=== PATIENT | male | born 1960 | race Caucasian/White ===

== ENCOUNTER → 2023-01-27 | Outpatient (REF) | payer OTHER ==
[2023-01-27 18:01] LABS: CHOLESTEROL LEVEL 152 MG/DL (<200); CHOLESTEROL RISK RATIO 2.33 (<5); HDL CHOLESTEROL 65.1 MG/DL (>40); LDL CHOLESTEROL 56.3 MG/DL (<100); NON-HDL-C 86.9 MG/DL; THYROID STIMULATING HORMONE 1.496 uIU/ML (0.55-4.78); TRIGLYCERIDES LEVEL 153 MG/DL (<150)
[2023-01-27 18:04] LABS: HEMOGLOBIN A1c 5.6 % (4.0-6.0)
[2023-01-29 07:09] LABS: HEPATITIS A IgG TOTAL Negative (Negative)
== END ==
LOC: M LAB REF 16:10
PROVIDERS: ATTEND Pediatrics
DX: E66.01 Morbid (severe) obesity due to excess calories (principal); Z68.41 Body mass index [BMI] 40.0-44.9, adult; Z11.9 Encounter for screening for infectious and parasitic diseases, unspecified; Z12.5 Encounter for screening for malignant neoplasm of prostate
CPT/HCPCS: 80061; 83036; 84443; 86317; 86708; 87340; G0103

== ENCOUNTER 2023-02-23 16:45 | Inpatient (IN) | payer OTHER, MEDICAID ==
[~2023-02-23] VITALS: Ht 177.8 cm; Wt 129.8 kg
[2023-02-23 17:38] LABS: HEMATOCRIT 45.6 % (42.0-52.0); HEMOGLOBIN 15.7 g/dl (13.5-17.5); MEAN CORPUSCULAR HEMOGLOBIN 31.8 pg (27.0-33.0); MEAN CORPUSCULAR HGB CONC 34.4 g/dl (32.0-36.5); MEAN CORPUSCULAR VOLUME 92.3 fl (80.0-96.0); PLATELET COUNT, AUTOMATED 199 10^3/uL (150-450); RED BLOOD COUNT 4.94 10^6/uL (4.30-6.10); WHITE BLOOD COUNT 7.8 10^3/uL (4.0-10.0)
[2023-02-23 17:52] LABS: BENZODIAZEPINES URINE NEGATIVE (NEGATIVE); PHENCYCLIDINE URINE NEGATIVE (NEGATIVE)
[2023-02-23 17:53] LABS: AMPHETAMINES LEVEL URINE NEGATIVE (NEGATIVE); BARBITURATES URINE NEGATIVE (NEGATIVE); CANNABINOIDS URINE NEGATIVE (NEGATIVE); COCAINE METABOLITE URINE NEGATIVE (NEGATIVE); METHADONE URINE NEGATIVE (NEGATIVE); OPIATES URINE NEGATIVE (NEGATIVE)
[2023-02-23 17:54] LABS: ETHYL ALCOHOL (ETHANOL) < 0.003 % (0.000-0.010)
[2023-02-23 17:55] LABS: ACETAMINOPHEN LEVEL < 2.0 UG/ML (10.0-20.0); ALKALINE PHOSPHATASE 74 U/L (46-116); ALT/SGPT 29 U/L (7.0-40); AST/SGOT 19 U/L (<34); BILIRUBIN,DIRECT 0.3 MG/DL (<0.4); BILIRUBIN,TOTAL 0.8 MG/DL (0.3-1.2); BLOOD UREA NITROGEN 27 MG/DL (9-23); CALCIUM LEVEL 9.1 MG/DL (8.3-10.6); CARBON DIOXIDE LEVEL 25 MMOL/L (20-31); CHLORIDE LEVEL 110 MMOL/L (98-107); CREATININE FOR GFR 0.85 MG/DL (0.70-1.30); GLOMERULAR FILTRATION RATE > 60.0 (>49); GLUCOSE, FASTING 112 MG/DL (74-106); SALICYLATE LEVEL < 3.0 MG/DL (<30); SODIUM LEVEL 144 MMOL/L (136-145)
[2023-02-24] MEDS ORDERED: AMLO1TAB25 PO (00:49)
[2023-02-24] MEDS ORDERED: ATOR40TA75 PO (00:49)
[2023-02-24] MEDS ORDERED: DOXA1TAB41 PO (00:49)
[2023-02-24] MEDS ORDERED: PANT20TA6 PO (00:49)
[2023-02-24] MEDS ORDERED: ARIP1TAB10 PO (00:49)
[2023-02-24] MEDS ORDERED: HOME MED LIST COMPLETE! XX SCH (00:50)
[2023-02-24] MEDS: PANTOPRAZOLE 20 MG TAB PO SCH (09:00)
[2023-02-24] MEDS: ATORVASTATIN 20 MG TAB PO SCH (09:00)
[2023-02-24] MEDS ORDERED: ACETAMINOPHEN TAB 650MG DOSE (2X325MG) PO PRN (13:15)
[2023-02-24] MEDS ORDERED: diphenhydrAMINE 25MG CAP PO PRN (13:15)
[2023-02-24] MEDS ORDERED: traZODone 50 MG TAB PO PRN (13:15)
[2023-02-24] MEDS ORDERED: MOM 30ML SUSPENSION UDC PO PRN (13:15)
[2023-02-24] MEDS ORDERED: MAALOX 30 ML SUSP *UDC PO PRN (13:15)
[2023-02-24] MEDS ORDERED: IBUPROFEN 400MG TAB PO PRN (13:15)
[2023-02-24 17:01] VITALS: BP 128/74; TEMP 97.4; O2SAT 96
[2023-02-24] MEDS: ARIPiprazole 15 MG TAB (AbiLIFY) PO SCH (21:20)
[2023-02-24] MEDS: DOXAZOSIN MESYLATE 4 MG TAB PO SCH (21:37)
[2023-02-25 06:55] VITALS: BP 126/75; TEMP 98.2; O2SAT 95
[2023-02-25] MEDS: ATORVASTATIN 20 MG TAB PO SCH (08:43)
[2023-02-25] MEDS: PANTOPRAZOLE 20 MG TAB PO SCH (10:17)
[2023-02-25 16:05] VITALS: BP 136/62; TEMP 98; O2SAT 99
[2023-02-25] MEDS: ARIPiprazole 15 MG TAB (AbiLIFY) PO SCH (21:06)
[2023-02-25] MEDS: DOXAZOSIN MESYLATE 4 MG TAB PO SCH (21:13)
[2023-02-26 06:41] VITALS: BP 134/84; TEMP 98.1; O2SAT 95
[2023-02-26] MEDS: buPROPion **XL** TABLET 150MG (WELLBUTRIN XL) PO SCH (08:32)
[2023-02-26] MEDS: PANTOPRAZOLE 20 MG TAB PO SCH (08:33)
[2023-02-26] MEDS: ATORVASTATIN 20 MG TAB PO SCH (08:33)
[2023-02-26 09:07] LABS: CHOLESTEROL RISK RATIO 2.42 (<5); HDL CHOLESTEROL 48.2 MG/DL (>40); LDL CHOLESTEROL 47.8 MG/DL (<100); NON-HDL-C 68.8 MG/DL
[2023-02-26 16:21] VITALS: BP 128/72; TEMP 98; O2SAT 96
[2023-02-26] MEDS: ARIPiprazole 15 MG TAB (AbiLIFY) PO SCH (21:24)
[2023-02-26] MEDS: DOXAZOSIN MESYLATE 4 MG TAB PO SCH (21:25)
[2023-02-27 06:12] VITALS: BP 142/82; TEMP 98.6; O2SAT 99
[2023-02-27] MEDS: PANTOPRAZOLE 20 MG TAB PO SCH (08:58)
[2023-02-27] MEDS: buPROPion **XL** TABLET 150MG (WELLBUTRIN XL) PO SCH (08:59)
[2023-02-27] MEDS: ATORVASTATIN 20 MG TAB PO SCH (08:59)
[2023-02-27 18:02] VITALS: BP 138/80; TEMP 98.3
[2023-02-27] MEDS: ARIPiprazole 15 MG TAB (AbiLIFY) PO SCH (20:18)
[2023-02-27] MEDS: DOXAZOSIN MESYLATE 4 MG TAB PO SCH (21:19)
[2023-02-28 06:07] VITALS: BP 130/85; TEMP 98.3; O2SAT 95
[2023-02-28 08:56] VITALS: BP 145/89
[2023-02-28] MEDS: ATORVASTATIN 20 MG TAB PO SCH (08:57)
[2023-02-28] MEDS: buPROPion **XL** TABLET 150MG (WELLBUTRIN XL) PO SCH (08:57)
[2023-02-28] MEDS: PANTOPRAZOLE 20 MG TAB PO SCH (09:51)
[2023-02-28 17:58] VITALS: BP 136/71; TEMP 98.2; O2SAT 98
[2023-02-28] MEDS: DOXAZOSIN MESYLATE 4 MG TAB PO SCH (21:16)
[2023-02-28] MEDS: ARIPiprazole 15 MG TAB (AbiLIFY) PO SCH (21:16)
[2023-03-01 06:59] VITALS: BP 130/81; TEMP 98.7; O2SAT 96
[2023-03-01] MEDS: ATORVASTATIN 20 MG TAB PO SCH (09:01)
[2023-03-01] MEDS: buPROPion **XL** TABLET 150MG (WELLBUTRIN XL) PO SCH (09:01)
[2023-03-01] MEDS: PANTOPRAZOLE 20 MG TAB PO SCH (11:29)
[2023-03-01 16:10] VITALS: BP 131/67; TEMP 98.6; O2SAT 96
[2023-03-01] MEDS: ARIPiprazole 15 MG TAB (AbiLIFY) PO SCH (20:15)
[2023-03-01] MEDS: DOXAZOSIN MESYLATE 4 MG TAB PO SCH (20:15)
[2023-03-02 06:16] VITALS: BP 143/78; TEMP 99.3; O2SAT 96
[2023-03-02] MEDS: buPROPion **XL** TABLET 150MG (WELLBUTRIN XL) PO SCH (08:19)
[2023-03-02] MEDS: ATORVASTATIN 20 MG TAB PO SCH (08:20)
[2023-03-02] MEDS: PANTOPRAZOLE 20 MG TAB PO SCH (08:21)
[2023-03-02 18:19] VITALS: BP 143/81; TEMP 98; O2SAT 93
[2023-03-02] MEDS: ARIPiprazole 15 MG TAB (AbiLIFY) PO SCH (20:31)
[2023-03-02] MEDS: DOXAZOSIN MESYLATE 4 MG TAB PO SCH (20:35)
[2023-03-03 06:54] VITALS: BP 135/78; TEMP 99; O2SAT 97
[2023-03-03 08:51] VITALS: BP 131/79
[2023-03-03] MEDS: buPROPion **XL** TABLET 150MG (WELLBUTRIN XL) PO SCH (08:52)
[2023-03-03] MEDS: ATORVASTATIN 20 MG TAB PO SCH (08:53)
[2023-03-03] MEDS: PANTOPRAZOLE 20 MG TAB PO SCH (09:48)
[2023-03-03] MEDS: busPIRone 10 MG TAB PO SCH ×2 (11:18→20:54)
[2023-03-03] MEDS: ANUSOL HC CREAM 30GM TOP PRN (11:19)
[2023-03-03 18:34] VITALS: BP 127/71; TEMP 98.1
[2023-03-03] MEDS: ARIPiprazole 15 MG TAB (AbiLIFY) PO SCH (20:55)
[2023-03-03] MEDS: DOXAZOSIN MESYLATE 4 MG TAB PO SCH (20:55)
[2023-03-04 06:31] VITALS: BP 126/77; TEMP 97.6; O2SAT 96
[2023-03-04 08:24] VITALS: BP 120/72; O2SAT 98
[2023-03-04] MEDS: busPIRone 10 MG TAB PO SCH ×2 (08:25→20:27)
[2023-03-04] MEDS: PANTOPRAZOLE 20 MG TAB PO SCH (08:25)
[2023-03-04] MEDS: ATORVASTATIN 20 MG TAB PO SCH (08:25)
[2023-03-04] MEDS: buPROPion **XL** TABLET 150MG (WELLBUTRIN XL) PO SCH (08:29)
[2023-03-04] MEDS: ANUSOL HC CREAM 30GM TOP PRN (08:30)
[2023-03-04 18:08] VITALS: BP 114/57; TEMP 98.5
[2023-03-04] MEDS: ARIPiprazole 15 MG TAB (AbiLIFY) PO SCH (20:27)
[2023-03-04] MEDS: DOXAZOSIN MESYLATE 4 MG TAB PO SCH (20:29)
[2023-03-05 05:49] VITALS: BP 131/76; TEMP 97.8; O2SAT 92
[2023-03-05 08:38] VITALS: BP 136/68
[2023-03-05] MEDS: ATORVASTATIN 20 MG TAB PO SCH (08:39)
[2023-03-05] MEDS: busPIRone 10 MG TAB PO SCH ×2 (08:39→20:42)
[2023-03-05] MEDS: buPROPion **XL** TABLET 150MG (WELLBUTRIN XL) PO SCH (08:39)
[2023-03-05] MEDS: PANTOPRAZOLE 20 MG TAB PO SCH (08:39)
[2023-03-05] MEDS: ANUSOL HC CREAM 30GM TOP PRN (08:40)
[2023-03-05 18:27] VITALS: BP 116/56; TEMP 99; O2SAT 97
[2023-03-05] MEDS: DOXAZOSIN MESYLATE 4 MG TAB PO SCH (20:41)
[2023-03-05] MEDS: ARIPiprazole 15 MG TAB (AbiLIFY) PO SCH (20:41)
[2023-03-06 06:32] VITALS: BP 133/63; TEMP 97.8; O2SAT 93
[2023-03-06] MEDS: buPROPion **XL** TABLET 150MG (WELLBUTRIN XL) PO SCH (08:07)
[2023-03-06] MEDS: PANTOPRAZOLE 20 MG TAB PO SCH (08:07)
[2023-03-06] MEDS: ANUSOL HC CREAM 30GM TOP PRN (08:08)
[2023-03-06] MEDS: busPIRone 10 MG TAB PO SCH ×2 (08:08→20:26)
[2023-03-06] MEDS: ATORVASTATIN 20 MG TAB PO SCH (08:08)
[2023-03-06 18:07] VITALS: BP 125/74; TEMP 97.7; O2SAT 95
[2023-03-06 20:23] VITALS: BP 127/73
[2023-03-06] MEDS: DOXAZOSIN MESYLATE 4 MG TAB PO SCH (20:25)
[2023-03-06] MEDS: ARIPiprazole 15 MG TAB (AbiLIFY) PO SCH (20:25)
[2023-03-07 06:56] VITALS: BP 124/60; TEMP 98; O2SAT 96
[2023-03-07] MEDS: ATORVASTATIN 20 MG TAB PO SCH (09:31)
[2023-03-07] MEDS: busPIRone 10 MG TAB PO SCH ×2 (09:31→21:25)
[2023-03-07] MEDS: PANTOPRAZOLE 20 MG TAB PO SCH (09:32)
[2023-03-07] MEDS: ANUSOL HC CREAM 30GM TOP PRN (09:32)
[2023-03-07] MEDS: buPROPion **XL** TABLET 150MG (WELLBUTRIN XL) PO SCH (09:32)
[2023-03-07 16:04] VITALS: BP 116/68; TEMP 98.3; O2SAT 99
[2023-03-07 18:53] VITALS: BP 116/68; TEMP 98.3; O2SAT 99
[2023-03-07] MEDS: ARIPiprazole 15 MG TAB (AbiLIFY) PO SCH (21:25)
[2023-03-07] MEDS: DOXAZOSIN MESYLATE 4 MG TAB PO SCH (21:27)
[2023-03-08 06:39] VITALS: BP 113/61; TEMP 98.5; O2SAT 99
[2023-03-08] MEDS: ATORVASTATIN 20 MG TAB PO SCH (08:00)
[2023-03-08] MEDS: buPROPion **XL** TABLET 150MG (WELLBUTRIN XL) PO SCH (08:01)
[2023-03-08] MEDS: PANTOPRAZOLE 20 MG TAB PO SCH (08:01)
[2023-03-08] MEDS: busPIRone 10 MG TAB PO SCH ×2 (08:01→20:27)
[2023-03-08 09:32] VITALS: BP 133/72; TEMP 98.5; O2SAT 99
[2023-03-08 16:17] VITALS: BP 128/66; TEMP 98.2; O2SAT 95
[2023-03-08] MEDS: DOXAZOSIN MESYLATE 4 MG TAB PO SCH (20:27)
[2023-03-08] MEDS: ARIPiprazole 15 MG TAB (AbiLIFY) PO SCH (20:27)
[2023-03-09 06:47] VITALS: BP 105/57; TEMP 97.7; O2SAT 95
[2023-03-09 08:04] VITALS: BP 113/70
[2023-03-09] MEDS: PANTOPRAZOLE 20 MG TAB PO SCH (08:04)
[2023-03-09 08:05] VITALS: BP 113/70
[2023-03-09] MEDS: ATORVASTATIN 20 MG TAB PO SCH (08:05)
[2023-03-09] MEDS: buPROPion **XL** TABLET 150MG (WELLBUTRIN XL) PO SCH (08:05)
[2023-03-09] MEDS: busPIRone 10 MG TAB PO SCH (08:05)
[2023-03-09] MEDS ORDERED: WELLTAB40 PO (10:27)
[2023-03-09] MEDS ORDERED: ARIP1TAB10 PO (10:27)
[2023-03-09] MEDS ORDERED: BUSP10TA PO (10:27)
== END 2023-03-09 11:05 | disposition home or self-care (01) | DRG 885 ==
LOC: M ED 16:45 → M ED INP 02-24 13:15 → M PSY 02-24 15:40
PROVIDERS: ADMIT Student in an Organized Health Care Education/Training Program; ATTEND Student in an Organized Health Care Education/Training Program
DX: F33.1 Major depressive disorder, recurrent, moderate (principal); R45.851 Suicidal ideations; Z68.41 Body mass index [BMI] 40.0-44.9, adult; F43.10 Post-traumatic stress disorder, unspecified; F15.10 Other stimulant abuse, uncomplicated; F12.10 Cannabis abuse, uncomplicated; Z91.51 Personal history of suicidal behavior; Z79.899 Other long term (current) drug therapy; I10 Essential (primary) hypertension; E78.5 Hyperlipidemia, unspecified; E66.01 Morbid (severe) obesity due to excess calories; F60.3 Borderline personality disorder; F60.7 Dependent personality disorder; F60.89 Other specific personality disorders

== ENCOUNTER → 2023-03-29 | Outpatient (REF) | payer OTHER, MEDICAID ==
[~2023-03-29] MED LIST: AMLO1TAB25 PO; ARIP1TAB10 PO; ATOR40TA75 PO; BUSP10TA PO; DOXA1TAB41 PO; PANT20TA6 PO; WELLTAB40 PO
[2023-03-29 14:45] LABS: FOLATE 14.1 NG/ML (>5.4); VITAMIN B12 LEVEL 620 PG/ML (211-911)
== END ==
LOC: M LAB REF 12:41
PROVIDERS: ATTEND Pediatrics
DX: M79.2 Neuralgia and neuritis, unspecified (principal); R20.2 Paresthesia of skin

== ENCOUNTER 2024-10-11 14:49 | Inpatient (IN) | payer OTHER, MEDICAID ==
[~2024-10-11] VITALS: Ht 177.8 cm; Wt 166.9 kg
[~2024-10-11 14:49] MED LIST changes: +amLODIPine 5 MG TAB PO SCH
[2024-10-11 15:51] LABS: BASO % 0.2 % (0.0-1.0); HEMATOCRIT 44.2 % (42.0-52.0); HEMOGLOBIN 15.5 g/dl (13.5-17.5); LYMPH # 1.5 10^3/uL (1.5-5.0); LYMPH % 8.4 % (24.0-44.0); MEAN CORPUSCULAR HEMOGLOBIN 31.4 pg (27.0-33.0); MEAN CORPUSCULAR HGB CONC 35.1 g/dl (32.0-36.5); MEAN CORPUSCULAR VOLUME 89.7 fl (80.0-96.0); MONO # 0.9 10^3/uL (0.0-0.8); NEUTROPHILS # 14.8 10^3/uL (1.5-8.5); PLATELET COUNT, AUTOMATED 207 10^3/uL (150-450); RED BLOOD COUNT 4.93 10^6/uL (4.30-6.10); WHITE BLOOD COUNT 17.2 10^3/uL (4.0-10.0)
[2024-10-11] MEDS: ACETAMINOPHEN *IV* 1,000 MG in IV 1 EA IV ONE (16:00)
[2024-10-11 16:07] LABS: INR 1.04; PARTIAL THROMBOPLASTIN TIME 31.1 SECONDS (24.8-34.2); PROTHROMBIN TIME 13.9 SECONDS (12.5-14.5)
[2024-10-11 16:26] LABS: AMYLASE 53 U/L (30-118); C REACTIVE PROTEIN QUANTITATIV 9.94 MG/DL (<1.0)
[2024-10-11 16:38] LABS: PROCALCITONIN 0.79 ng/ml
[2024-10-11 16:40] LABS: ALBUMIN 3.2 G/DL (3.2-5.2); ALKALINE PHOSPHATASE 50 U/L (40-129); ALT/SGPT 76 U/L (7.0-40); AST/SGOT 123 U/L (<34); BILIRUBIN,DIRECT 0.4 MG/DL (<0.4); BILIRUBIN,TOTAL 1.3 MG/DL (0.3-1.2); BLOOD UREA NITROGEN 13 MG/DL (9-23); CALCIUM LEVEL 8.9 MG/DL (8.3-10.6); CARBON DIOXIDE LEVEL 20 MMOL/L (20-31); CHLORIDE LEVEL 99 MMOL/L (98-107); CREATININE FOR GFR 0.61 MG/DL (0.70-1.30); GLOMERULAR FILTRATION RATE > 90.0 (>49); GLUCOSE, FASTING 181 MG/DL (74-106); POTASSIUM SERUM 4.8 MMOL/L (3.5-5.1); SODIUM LEVEL 133 MMOL/L (136-145)
[2024-10-11] MEDS: LOSARTAN 50MG TABLET PO ONE (16:41)
[2024-10-11] MEDS: cefTRIAXone SOD 2 GM in DEXTROSE 5% (D5W) ADV/MINI-BAG 50 ML IV ONE (17:56)
[2024-10-11] MEDS ORDERED: CEFEPIME HCL 1 GM in DEXTROSE 5% (D5W) ADV/MINI-BAG 50 ML IV SCH (18:30)
[2024-10-11] MEDS ORDERED: GLUCAGON INJ 1MG VIAL SC PRN (18:45)
[2024-10-11] MEDS ORDERED: GLUCOSE 4 GM CHEW PO PRN (18:45)
[2024-10-11] MEDS ORDERED: DEXTROSE 50% 50ML SYRINGE IV PRN (18:45)
[2024-10-11] MEDS ORDERED: HOME MED LIST COMPLETE! XX SCH (18:55)
[2024-10-11 19:35] LABS: HEMOGLOBIN A1c 6.9 % (4.0-6.0)
[2024-10-11 19:40] LABS: INR 1.09; PARTIAL THROMBOPLASTIN TIME 31.3 SECONDS (24.8-34.2); PROTHROMBIN TIME 14.4 SECONDS (12.5-14.5)
[2024-10-11 19:45] LABS: CK-MB VALUE MASS < 1.0 NG/ML (<3.6)
[2024-10-11 19:47] LABS: CPK CREATINE PHOSPHOKINASE 59 U/L (46-171); MB/CK RELATIVE INDEX 1.69 (< OR =4)
[2024-10-11] MEDS: NS (Normal Saline) 0.9% 1,000 ML IV SCH (19:51)
[2024-10-11] MEDS: CEFEPIME HCL 2 GM in DEXTROSE 5% (D5W) ADV/MINI-BAG 50 ML IV SCH (19:52)
[2024-10-11] MEDS: PANTOPRAZOLE 40MG TAB PO SCH (19:52)
[2024-10-11 19:54] LABS: PROCALCITONIN 0.84 ng/ml
[2024-10-11 20:00] LABS: HEPATITIS B SURFACE ANTIGEN NEGATIVE (NEGATIVE)
[2024-10-11] MEDS: DOXYCYCLINE HYCLATE 100MG TABLET PO SCH (20:03)
[2024-10-11] MEDS: INSULIN LISPRO (NovoLOG) PER UNIT SC SCH (20:03)
[2024-10-11] MEDS: ENOXAPARIN 60MG/0.6ML SYRINGE (J1650 PER 10MG) SC SCH (20:05)
[2024-10-11 20:21] LABS: HEPATITIS C VIRUS ABY INDEX 0.08 INDEX (<0.8)
[2024-10-11 20:22] LABS: HEPATITIS B CORE ANTIBODY IGM NEGATIVE (NEGATIVE)
[2024-10-11] MEDS: NYSTATIN 100,000 UNITS/GM TOPICAL PWD 15GM TOP SCH (21:00)
[2024-10-11 21:23] LABS: CHOLESTEROL LEVEL 132 MG/DL (<200); CHOLESTEROL RISK RATIO 3.21 (<5); TRIGLYCERIDES LEVEL 105 MG/DL (<150)
[2024-10-12] MEDS: traMADol 50 MG TAB PO PRN (03:17)
[2024-10-12 06:42] LABS: HEMATOCRIT 40.9 % (42.0-52.0); HEMOGLOBIN 14.2 g/dl (13.5-17.5); MEAN CORPUSCULAR HEMOGLOBIN 32.3 pg (27.0-33.0); MEAN CORPUSCULAR HGB CONC 34.7 g/dl (32.0-36.5); PLATELET COUNT, AUTOMATED 171 10^3/uL (150-450); WHITE BLOOD COUNT 11.2 10^3/uL (4.0-10.0)
[2024-10-12 07:10] LABS: ALBUMIN 2.8 G/DL (3.2-5.2); ALKALINE PHOSPHATASE 49 U/L (40-129); ALT/SGPT 52 U/L (7.0-40); AST/SGOT 55 U/L (<34); BLOOD UREA NITROGEN 17 MG/DL (9-23); CALCIUM LEVEL 8.4 MG/DL (8.3-10.6); CARBON DIOXIDE LEVEL 25 MMOL/L (20-31); CHLORIDE LEVEL 102 MMOL/L (98-107); CREATININE FOR GFR 0.66 MG/DL (0.70-1.30); GLOMERULAR FILTRATION RATE > 90.0 (>49); GLUCOSE, FASTING 169 MG/DL (74-106); SODIUM LEVEL 137 MMOL/L (136-145); TOTAL PROTEIN 6.1 G/DL (5.7-8.2)
[2024-10-12] MEDS: POTASSIUM CHLORIDE 10MEQ SR TABLET PO ONE ×2 (09:15→12:41)
[2024-10-12] MEDS: INSULIN LISPRO (NovoLOG) PER UNIT SC SCH (09:15)
[2024-10-12 12:00] VITALS: BP 144/68; TEMP 97.5; O2SAT 93
[2024-10-12] MEDS: POTASSIUM CHLORIDE 10MEQ SR TABLET PO SCH (13:46)
[2024-10-12 14:06] VITALS: BP 143/79; TEMP 97.7; O2SAT 94
[2024-10-12] MEDS: BUPROPION 150 MG PO SCH (17:14)
[2024-10-12 21:26] VITALS: BP 152/90; TEMP 97.3; O2SAT 94
[2024-10-13 04:36] VITALS: BP 140/91; TEMP 97.3; O2SAT 94
[2024-10-13 07:03] LABS: HEMATOCRIT 41.4 % (42.0-52.0); HEMOGLOBIN 13.8 g/dl (13.5-17.5); MEAN CORPUSCULAR HEMOGLOBIN 31.3 pg (27.0-33.0); MEAN CORPUSCULAR HGB CONC 33.3 g/dl (32.0-36.5); MEAN CORPUSCULAR VOLUME 93.9 fl (80.0-96.0); PLATELET COUNT, AUTOMATED 169 10^3/uL (150-450); RED BLOOD COUNT 4.41 10^6/uL (4.30-6.10); WHITE BLOOD COUNT 6.9 10^3/uL (4.0-10.0)
[2024-10-13 07:29] LABS: ALBUMIN 2.7 G/DL (3.2-5.2); ALKALINE PHOSPHATASE 46 U/L (40-129); ALT/SGPT 45 U/L (7.0-40); AST/SGOT 47 U/L (<34); BILIRUBIN,TOTAL 0.6 MG/DL (0.3-1.2); BLOOD UREA NITROGEN 17 MG/DL (9-23); CALCIUM LEVEL 8.6 MG/DL (8.3-10.6); CARBON DIOXIDE LEVEL 25 MMOL/L (20-31); CHLORIDE LEVEL 109 MMOL/L (98-107); CREATININE FOR GFR 0.61 MG/DL (0.70-1.30); GLOMERULAR FILTRATION RATE > 90.0 (>49); GLUCOSE, FASTING 140 MG/DL (74-106); POTASSIUM SERUM 3.9 MMOL/L (3.5-5.1); SODIUM LEVEL 143 MMOL/L (136-145); TOTAL PROTEIN 6.1 G/DL (5.7-8.2)
[2024-10-13] MEDS ORDERED: FUROSEMIDE 20 MG TAB PO SCH (09:00)
[2024-10-13] MEDS: CHLORTHALIDONE 25 MG TAB PO SCH (09:15)
[2024-10-13 12:00] VITALS: BP 159/83; TEMP 97.7
[2024-10-13] MEDS: PREVNAR-20 VACCINE 0.5ML SYRINGE IM.IMMUN ONE (12:02)
[2024-10-13 21:15] VITALS: BP 159/84; TEMP 97.2; O2SAT 95
[2024-10-14 04:00] VITALS: BP 156/85; TEMP 97.7; O2SAT 93
[2024-10-14 05:56] LABS: HEMATOCRIT 42.6 % (42.0-52.0); HEMOGLOBIN 14.1 g/dl (13.5-17.5); MEAN CORPUSCULAR HEMOGLOBIN 31.5 pg (27.0-33.0); MEAN CORPUSCULAR HGB CONC 33.1 g/dl (32.0-36.5); MEAN CORPUSCULAR VOLUME 95.3 fl (80.0-96.0); PLATELET COUNT, AUTOMATED 190 10^3/uL (150-450); RED BLOOD COUNT 4.47 10^6/uL (4.30-6.10); WHITE BLOOD COUNT 6.5 10^3/uL (4.0-10.0)
[2024-10-14 06:23] LABS: ALBUMIN 2.8 G/DL (3.2-5.2); ALKALINE PHOSPHATASE 47 U/L (40-129); ALT/SGPT 51 U/L (7.0-40); AST/SGOT 78 U/L (<34); BILIRUBIN,TOTAL 0.5 MG/DL (0.3-1.2); BLOOD UREA NITROGEN 17 MG/DL (9-23); CALCIUM LEVEL 8.6 MG/DL (8.3-10.6); CARBON DIOXIDE LEVEL 24 MMOL/L (20-31); CHLORIDE LEVEL 107 MMOL/L (98-107); GLOMERULAR FILTRATION RATE > 90.0 (>49); GLUCOSE, FASTING 144 MG/DL (74-106); POTASSIUM SERUM 3.8 MMOL/L (3.5-5.1); SODIUM LEVEL 142 MMOL/L (136-145); TOTAL PROTEIN 6.2 G/DL (5.7-8.2)
[2024-10-14 08:02] LABS: C REACTIVE PROTEIN QUANTITATIV 5.09 MG/DL (<1.0)
[2024-10-14] MEDS: cefTRIAXone SOD 1 GM in DEXTROSE 5% (D5W) ADV/MINI-BAG 50 ML IV SCH (08:17)
[2024-10-14 12:00] VITALS: BP 159/90; TEMP 97.7; O2SAT 96
[2024-10-14] MEDS: FUROSEMIDE 40 MG TAB PO SCH (17:15)
[2024-10-14 19:57] VITALS: BP 160/90; TEMP 97.7; O2SAT 93
[2024-10-15 03:53] VITALS: BP 162/90; TEMP 97.2; O2SAT 94
[2024-10-15 06:11] LABS: HEMATOCRIT 42.5 % (42.0-52.0); HEMOGLOBIN 14.6 g/dl (13.5-17.5); MEAN CORPUSCULAR HGB CONC 34.4 g/dl (32.0-36.5); MEAN CORPUSCULAR VOLUME 93.2 fl (80.0-96.0); PLATELET COUNT, AUTOMATED 198 10^3/uL (150-450); RED BLOOD COUNT 4.56 10^6/uL (4.30-6.10); WHITE BLOOD COUNT 6.3 10^3/uL (4.0-10.0)
[2024-10-15 06:40] LABS: ALBUMIN 3.1 G/DL (3.2-5.2); ALKALINE PHOSPHATASE 52 U/L (40-129); ALT/SGPT 72 U/L (7.0-40); AST/SGOT 123 U/L (<34); BILIRUBIN,TOTAL 0.5 MG/DL (0.3-1.2); BLOOD UREA NITROGEN 15 MG/DL (9-23); CALCIUM LEVEL 8.9 MG/DL (8.3-10.6); CARBON DIOXIDE LEVEL 26 MMOL/L (20-31); CHLORIDE LEVEL 104 MMOL/L (98-107); GLOMERULAR FILTRATION RATE > 90.0 (>49); GLUCOSE, FASTING 144 MG/DL (74-106); POTASSIUM SERUM 3.7 MMOL/L (3.5-5.1); SODIUM LEVEL 141 MMOL/L (136-145); TOTAL PROTEIN 6.9 G/DL (5.7-8.2)
[2024-10-15 12:00] VITALS: BP 136/75; TEMP 97.5; O2SAT 96
[2024-10-15 20:13] VITALS: BP 131/83; TEMP 97.3; O2SAT 90
[2024-10-16 05:03] VITALS: BP 155/93; TEMP 97.2; O2SAT 90
[2024-10-16 08:58] VITALS: BP 173/99
[2024-10-16] MEDS: POTASSIUM CHLORIDE 10MEQ SR TABLET PO SCH (09:01)
[2024-10-16 12:00] VITALS: BP 140/81; TEMP 97.5; O2SAT 98
[2024-10-16 20:52] VITALS: BP 165/87; TEMP 97.7; O2SAT 95
[2024-10-16] MEDS: CEPHALEXIN 500 MG CAP PO SCH (21:00)
[2024-10-17 05:02] VITALS: BP 147/85; TEMP 97.3; O2SAT 96
[2024-10-17 06:36] LABS: BASO # 0.1 10^3/uL (0.0-0.2); BASO % 0.7 % (0.0-1.0); EOS # 0.3 10^3/uL (0.0-0.5); EOS % 4.7 % (0.0-3.0); HEMATOCRIT 44.6 % (42.0-52.0); HEMOGLOBIN 14.9 g/dl (13.5-17.5); LYMPH # 1.9 10^3/uL (1.5-5.0); LYMPH % 26.2 % (24.0-44.0); MEAN CORPUSCULAR HEMOGLOBIN 31.4 pg (27.0-33.0); MEAN CORPUSCULAR HGB CONC 33.4 g/dl (32.0-36.5); MEAN CORPUSCULAR VOLUME 94.1 fl (80.0-96.0); MONO # 0.5 10^3/uL (0.0-0.8); MONO % 6.8 % (2.0-8.0); NEUTROPHILS # 4.3 10^3/uL (1.5-8.5); NEUTROPHILS % 60.9 % (36.0-66.0); PLATELET COUNT, AUTOMATED 204 10^3/uL (150-450); RED BLOOD COUNT 4.74 10^6/uL (4.30-6.10); WHITE BLOOD COUNT 7.1 10^3/uL (4.0-10.0)
[2024-10-17 07:01] LABS: ALKALINE PHOSPHATASE 53 U/L (40-129); ALT/SGPT 106 U/L (7.0-40); AST/SGOT 171 U/L (<34); BILIRUBIN,DIRECT 0.2 MG/DL (<0.4); BILIRUBIN,TOTAL 0.6 MG/DL (0.3-1.2); BLOOD UREA NITROGEN 19 MG/DL (9-23); CALCIUM LEVEL 9.2 MG/DL (8.3-10.6); CARBON DIOXIDE LEVEL 27 MMOL/L (20-31); CHLORIDE LEVEL 103 MMOL/L (98-107); CREATININE FOR GFR 0.62 MG/DL (0.70-1.30); GLOMERULAR FILTRATION RATE > 90.0 (>49); GLUCOSE, FASTING 136 MG/DL (74-106); POTASSIUM SERUM 3.7 MMOL/L (3.5-5.1); SODIUM LEVEL 140 MMOL/L (136-145); TOTAL PROTEIN 6.6 G/DL (5.7-8.2)
[2024-10-17 08:38] VITALS: BP 143/84
[2024-10-17 12:00] VITALS: BP 120/68; TEMP 97.7; O2SAT 93
[2024-10-17] MEDS ORDERED: FURO40TA2 PO (17:07)
[2024-10-17] MEDS ORDERED: ABIL1TAB11 PO (17:07)
[2024-10-17] MEDS ORDERED: PANT40TA29 PO (17:07)
[2024-10-17] MEDS ORDERED: HYDR-4570 PO (17:07)
[2024-10-17] MEDS ORDERED: NYST10006 TOP (17:07)
[2024-10-17] MEDS ORDERED: AMLO1TAB25 PO (17:07)
[2024-10-17] MEDS ORDERED: CEPH500C PO (17:07)
[2024-10-17] MEDS ORDERED: PROB250C PO (17:10)
[2024-10-17] MEDS ORDERED: METF-877 PO (17:10)
[2024-10-17 20:29] VITALS: BP 149/83; TEMP 97.5; O2SAT 96
[2024-10-17] MEDS ORDERED: diphenhydrAMINE 25MG CAP PO PRN (21:40)
[2024-10-17] MEDS ORDERED: IBUPROFEN 400MG TAB PO PRN (21:40)
[2024-10-17] MEDS ORDERED: MAALOX 30 ML SUSP *UDC PO PRN (21:40)
[2024-10-17] MEDS ORDERED: MOM 30ML SUSPENSION UDC PO PRN (21:40)
[2024-10-17] MEDS ORDERED: traZODone 50 MG TAB PO PRN (21:40)
[2024-10-17] MEDS ORDERED: ACETAMINOPHEN 325 MG TAB PO PRN (21:40)
[2024-10-18] MEDS ORDERED: BUPR150T12 PO (09:24)
[2024-10-18] MEDS ORDERED: TRAM50TA2 PO (09:24)
[2024-10-18] MEDS ORDERED: POTA1TAB24 PO (09:24)
== END 2024-10-17 22:47 | disposition still patient (30) | DRG 872 ==
LOC: M ED 14:49 → M ED INP 18:30 → M MS5PR 10-12 14:05 → M PSY 10-17 22:36
PROVIDERS: ADMIT Internal Medicine; ATTEND Internal Medicine Nephrology
DX: A41.9 Sepsis, unspecified organism (principal); E66.2 Morbid (severe) obesity with alveolar hypoventilation; R45.851 Suicidal ideations; L03.116 Cellulitis of left lower limb; Z68.43 Body mass index [BMI] 50.0-59.9, adult; F33.2 Major depressive disorder, recurrent severe without psychotic features; F43.10 Post-traumatic stress disorder, unspecified; I10 Essential (primary) hypertension; I87.2 Venous insufficiency (chronic) (peripheral); E11.42 Type 2 diabetes mellitus with diabetic polyneuropathy; R26.89 Other abnormalities of gait and mobility; F22 Delusional disorders; R29.6 Repeated falls; Z79.899 Other long term (current) drug therapy; I83.028 Varicose veins of left lower extremity with ulcer other part of lower leg; R94.5 Abnormal results of liver function studies; F41.1 Generalized anxiety disorder; F41.0 Panic disorder [episodic paroxysmal anxiety]

== ENCOUNTER 2024-12-07 11:37 | Inpatient (IN) | payer OTHER, MEDICAID ==
[~2024-12-07] VITALS: Ht 177.8 cm; Wt 154.6 kg
[~2024-12-07 11:37] MED LIST changes: +ABIL1TAB11 PO; +BUPR150T12 PO; +CEPH500C PO; +FURO40TA2 PO; +HYDR-3364 PO; +METF-877 PO; +NYST10006 TOP; +PANT40TA29 PO; +POTA-136 PO; +POTA1TAB24 PO; +PROB250C PO; +TRAM50TA2 PO; -amLODIPine 5 MG TAB PO SCH
[2024-12-07 13:15] LABS: VENOUS BASE EXCESS -2.4 (-2.0-2.0); VENOUS HCO3 20.1 MMOL/L (23.0-27.0); VENOUS O2 SATURATION 96.3 % (60.0-80.0); VENOUS PARTIAL PRESSURE CO2 29.8 mmHg (38.0-50.0); VENOUS PARTIAL PRESSURE O2 85.2 mmHg (30.0-50.0); VENOUS PH 7.447 UNITS (7.330-7.430); VENOUS STANDARD HCO3 22.5 MMOL/L; VENOUS TOTAL CO2 21.0 MMOL/L (24.0-28.0)
[2024-12-07] MEDS: NS (Normal Saline) 0.9% 1,000 ML IV ONE ×2 (13:20→14:16)
[2024-12-07] MEDS: ONDANSETRON 4MG 2ML VIAL IV ONE ×2 (13:20→16:55)
[2024-12-07] MEDS: MORPHINE 4 MG/ML 1 ML VIAL IV PRN (13:21)
[2024-12-07 13:28] LABS: BASO # 0.1 10^3/uL (0.0-0.2); BASO % 0.4 % (0.0-1.0); EOS # 0.0 10^3/uL (0.0-0.5); EOS % 0.1 % (0.0-3.0); LYMPH # 1.1 10^3/uL (1.5-5.0); LYMPH % 7.0 % (24.0-44.0); MONO # 0.8 10^3/uL (0.0-0.8); MONO % 5.2 % (2.0-8.0); NEUTROPHILS # 13.2 10^3/uL (1.5-8.5); NEUTROPHILS % 86.7 % (36.0-66.0); PLATELET COUNT, AUTOMATED 214 10^3/uL (150-450)
[2024-12-07 13:42] LABS: INR 1.01
[2024-12-07 13:56] LABS: ALT/SGPT 74 U/L (7.0-40); AST/SGOT 88 U/L (<34)
[2024-12-07] MEDS ORDERED: GLUCAGON INJ 1 MG VIAL SC PRN (15:40)
[2024-12-07] MEDS ORDERED: DEXTROSE 50% 50 ML SYRINGE IV PRN (15:40)
[2024-12-07] MEDS ORDERED: GLUCOSE 4 GM CHEW PO PRN (15:40)
[2024-12-07] MEDS: amLODIPine 10 MG TAB PO ONE (16:11)
[2024-12-07] MEDS: KETOROLAC 30 MG/ML 1 ML VIAL IV SCH (16:11)
[2024-12-07] MEDS: LR 1,000 ML IV ONE (16:11)
[2024-12-07] MEDS: CALCIUM GLUCONATE 1,000 MG in DEXTROSE 5% (D5W) MINI-BAG PLU 100 ML IV ONE (16:11)
[2024-12-07] MEDS: CLINDAMYCIN 900 MG in IV 1 EA IV SCH (16:12)
[2024-12-07 17:06] LABS: C REACTIVE PROTEIN QUANTITATIV 4.11 MG/DL (<1.0); SALICYLATE LEVEL < 3.0 MG/DL (<30)
[2024-12-07 17:07] LABS: ETHYL ALCOHOL (ETHANOL) < 0.003 % (0.000-0.010)
[2024-12-07 17:07] LABS: CALCIUM LEVEL 8.7 MG/DL (8.3-10.6); CARBON DIOXIDE LEVEL 21 MMOL/L (20-31); CHLORIDE LEVEL 102 MMOL/L (98-107); CREATININE FOR GFR 0.97 MG/DL (0.70-1.30); GLOMERULAR FILTRATION RATE 86.1 (>49); POTASSIUM SERUM 3.8 MMOL/L (3.5-5.1); SODIUM LEVEL 138 MMOL/L (136-145)
[2024-12-07 17:09] LABS: CALCIUM LEVEL 9.0 MG/DL (8.3-10.6); CARBON DIOXIDE LEVEL 20 MMOL/L (20-31); CHLORIDE LEVEL 99 MMOL/L (98-107); CK-MB VALUE MASS < 1.0 NG/ML (<3.6); CREATININE FOR GFR 1.01 MG/DL (0.70-1.30); GLOMERULAR FILTRATION RATE 82.0 (>49); POTASSIUM SERUM 4.6 MMOL/L (3.5-5.1); SODIUM LEVEL 136 MMOL/L (136-145)
[2024-12-07 17:12] LABS: CPK CREATINE PHOSPHOKINASE 87 U/L (46-171)
[2024-12-07 17:17] LABS: ERYTHROCYTE SEDIMENTATION RATE 60 mm/hr (0-20)
[2024-12-07 17:29] LABS: ESTIMATED AVERAGE GLUCOSE 157.0 MG/DL (60-110)
[2024-12-07] MEDS: CEFTAROLINE FOSAMIL 600 MG in DEXTROSE 5% (D5W) ADV/MINI-BAG 50 ML IV ONE (17:34)
[2024-12-07 17:38] LABS: KETONE, URINE AUTO RFX TRACE mg/dL (NEGATIVE); NITRITE, URINE AUTO RFX NEGATIVE (NEGATIVE); RBC, URINE AUTO RFX 6 /HPF (0-3); SQUAM EPITHELIAL CELL UR AURFX 0 /HPF (0-6); WBC, URINE AUTO RFX 4 /HPF (0-3)
[2024-12-07 17:43] LABS: LEUKOCYTE ESTERASE UR AUTO RFX TRACE (NEGATIVE)
[2024-12-07 18:01] LABS: AMPHETAMINES LEVEL URINE NEGATIVE (NEGATIVE); CANNABINOIDS URINE NEGATIVE (NEGATIVE); METHADONE URINE NEGATIVE (NEGATIVE); PHENCYCLIDINE URINE NEGATIVE (NEGATIVE)
[2024-12-07 18:02] LABS: BARBITURATES URINE NEGATIVE (NEGATIVE); BENZODIAZEPINES URINE NEGATIVE (NEGATIVE); COCAINE METABOLITE URINE NEGATIVE (NEGATIVE)
[2024-12-07 18:18] LABS: OPIATES URINE POSITIVE (NEGATIVE)
[2024-12-07] MEDS ORDERED: HOME MED LIST COMPLETE! XX SCH (18:20)
[2024-12-07] MEDS: cefTRIAXone SOD 2 GM in DEXTROSE 5% (D5W) ADV/MINI-BAG 50 ML IV SCH (19:50)
[2024-12-07] MEDS: INSULIN LISPRO (NovoLOG) PER UNIT SC SCH ×2 (19:51→21:40)
[2024-12-07] MEDS: ISOSORBIDE DINITRATE 10 MG TAB PO SCH (19:58)
[2024-12-07] MEDS: LanTUS (INSULIN GLARGINE INJ) 1 UNITS/0.01 ML SC SCH (21:48)
[2024-12-08 07:55] LABS: BASO # 0.0 10^3/uL (0.0-0.2); BASO % 0.2 % (0.0-1.0); EOS # 0.0 10^3/uL (0.0-0.5); EOS % 0.2 % (0.0-3.0); LYMPH # 1.4 10^3/uL (1.5-5.0); LYMPH % 10.3 % (24.0-44.0); MONO # 1.0 10^3/uL (0.0-0.8); MONO % 7.4 % (2.0-8.0); NEUTROPHILS # 10.7 10^3/uL (1.5-8.5); NEUTROPHILS % 81.5 % (36.0-66.0); PLATELET COUNT, AUTOMATED 189 10^3/uL (150-450)
[2024-12-08 08:02] LABS: ERYTHROCYTE SEDIMENTATION RATE 67 mm/hr (0-20)
[2024-12-08 08:19] LABS: C REACTIVE PROTEIN QUANTITATIV 9.56 MG/DL (<1.0)
[2024-12-08 08:30] LABS: ALT/SGPT 57 U/L (7.0-40); AST/SGOT 67 U/L (<34); CALCIUM LEVEL 8.5 MG/DL (8.3-10.6); CARBON DIOXIDE LEVEL 21 MMOL/L (20-31); CHLORIDE LEVEL 104 MMOL/L (98-107); CREATININE FOR GFR 0.75 MG/DL (0.70-1.30); GLOMERULAR FILTRATION RATE > 90.0 (>49); POTASSIUM SERUM 3.7 MMOL/L (3.5-5.1); SODIUM LEVEL 138 MMOL/L (136-145)
[2024-12-08] MEDS: amLODIPine 10 MG TAB PO SCH (09:13)
[2024-12-08] MEDS ORDERED: NALOXONE INJ 0.4 MG/1 ML VIAL IV PRN (09:55)
[2024-12-08] MEDS: MORPHINE 2 MG/ML 1 ML VIAL IV ONE (11:22)
[2024-12-08] MEDS: ISOSORBIDE DINITRATE 20 MG TAB PO SCH (12:00)
[2024-12-08] MEDS: PERCOCET 5MG/325MG TAB PO ONE (17:28)
[2024-12-08 20:00] VITALS: BP 106/67; TEMP 98; O2SAT 91
[2024-12-09] VITALS (7 sets, daily range): BP systolic 115–163; BP diastolic 66–91; TEMP 96–98.3; O2SAT 92–96
[2024-12-09 07:00] LABS: HEPATITIS C VIRUS ABY INDEX < 0.02 INDEX (<0.8)
[2024-12-09] MEDS: PERCOCET 5MG/325MG TAB PO ONE (08:23)
[2024-12-09] MEDS: LR 1,000 ML IV SCH (22:04)
[2024-12-10] VITALS (7 sets, daily range): BP systolic 125–155; BP diastolic 63–91; TEMP 95.4–97.9; O2SAT 96–97
[2024-12-10] MEDS: MORPHINE 2 MG/ML 1 ML VIAL IV PRN (08:14)
[2024-12-10] MEDS: ceFAZolin SODIUM 2 GM in DEXTROSE 5% (D5W) ADV/MINI-BAG 50 ML IV SCH (12:18)
[2024-12-10 12:47] LABS: BASO # 0.0 10^3/uL (0.0-0.2); BASO % 0.4 % (0.0-1.0); EOS # 0.2 10^3/uL (0.0-0.5); EOS % 2.5 % (0.0-3.0); LYMPH # 1.7 10^3/uL (1.5-5.0); LYMPH % 18.7 % (24.0-44.0); MONO # 0.7 10^3/uL (0.0-0.8); MONO % 7.3 % (2.0-8.0); NEUTROPHILS # 6.3 10^3/uL (1.5-8.5); NEUTROPHILS % 70.8 % (36.0-66.0); PLATELET COUNT, AUTOMATED 215 10^3/uL (150-450)
[2024-12-10 12:56] LABS: ERYTHROCYTE SEDIMENTATION RATE 66 mm/hr (0-20)
[2024-12-10 13:15] LABS: C REACTIVE PROTEIN QUANTITATIV 6.33 MG/DL (<1.0)
[2024-12-10 13:48] LABS: HEPATITIS C VIRUS ABY INDEX < 0.02 INDEX (<0.8)
[2024-12-10 14:57] LABS: ALT/SGPT 55 U/L (7.0-40); AST/SGOT 150 U/L (<34); CALCIUM LEVEL 8.5 MG/DL (8.3-10.6); CARBON DIOXIDE LEVEL 26 MMOL/L (20-31); CHLORIDE LEVEL 103 MMOL/L (98-107); CREATININE FOR GFR 0.80 MG/DL (0.70-1.30); GLOMERULAR FILTRATION RATE > 90.0 (>49); POTASSIUM SERUM 3.6 MMOL/L (3.5-5.1); SODIUM LEVEL 140 MMOL/L (136-145)
[2024-12-10 15:19] LABS: KETONE, URINE AUTO RFX NEGATIVE (NEGATIVE); MUCUS, URINE RFX SMALL (NEGATIVE); NITRITE, URINE AUTO RFX NEGATIVE (NEGATIVE); RBC, URINE AUTO RFX 128 /HPF (0-3); SQUAM EPITHELIAL CELL UR AURFX 0 /HPF (0-6); WBC, URINE AUTO RFX 10 /HPF (0-3)
[2024-12-10 15:39] LABS: LEUKOCYTE ESTERASE UR AUTO RFX TRACE (NEGATIVE)
[2024-12-10] MEDS: PHENAZOPYRIDINE 100 MG TAB PO SCH (17:06)
[2024-12-10] MEDS: LanTUS (INSULIN GLARGINE INJ) 1 UNITS/0.01 ML SC SCH (21:24)
[2024-12-10] MEDS: TAMSULOSIN 0.4 MG CAP PO SCH (21:25)
[2024-12-11] VITALS: BP 143/85; TEMP 97.9; O2SAT 95
[2024-12-11 04:00] VITALS: BP 151/88; TEMP 97.5; O2SAT 96
[2024-12-11 08:00] VITALS: BP 153/91; TEMP 97.7; O2SAT 95
[2024-12-11] MEDS: CEPHALEXIN 500 MG CAP PO SCH (09:54)
[2024-12-11 10:45] LABS: BASO # 0.0 10^3/uL (0.0-0.2); BASO % 0.5 % (0.0-1.0); EOS # 0.3 10^3/uL (0.0-0.5); EOS % 3.3 % (0.0-3.0); LYMPH # 1.5 10^3/uL (1.5-5.0); LYMPH % 17.5 % (24.0-44.0); MONO # 0.5 10^3/uL (0.0-0.8); MONO % 5.2 % (2.0-8.0); NEUTROPHILS # 6.4 10^3/uL (1.5-8.5); NEUTROPHILS % 73.0 % (36.0-66.0); PLATELET COUNT, AUTOMATED 233 10^3/uL (150-450)
[2024-12-11 10:51] LABS: ERYTHROCYTE SEDIMENTATION RATE 78 mm/hr (0-20)
[2024-12-11 11:02] LABS: C REACTIVE PROTEIN QUANTITATIV 7.38 MG/DL (<1.0)
[2024-12-11 11:03] LABS: ALT/SGPT 53 U/L (7.0-40); AST/SGOT 123 U/L (<34); CALCIUM LEVEL 8.9 MG/DL (8.3-10.6); CARBON DIOXIDE LEVEL 27 MMOL/L (20-31); CHLORIDE LEVEL 102 MMOL/L (98-107); CREATININE FOR GFR 0.81 MG/DL (0.70-1.30); GLOMERULAR FILTRATION RATE > 90.0 (>49); POTASSIUM SERUM 3.9 MMOL/L (3.5-5.1); SODIUM LEVEL 141 MMOL/L (136-145)
[2024-12-11 12:00] VITALS: BP 130/72; TEMP 98.1; O2SAT 96
[2024-12-11 16:00] VITALS: BP_SYST 101; BP_SYST 156; BP_DIAS 51; BP_DIAS 91; TEMP 97.5; O2SAT 94
[2024-12-11] MEDS: IBUPROFEN 400 MG TAB PO SCH (17:03)
[2024-12-11] MEDS ORDERED: FLEET ENEMA PR PRN (18:25)
[2024-12-11] MEDS ORDERED: MOM 30 ML SUSPENSION UDC PO PRN (18:25)
[2024-12-11] MEDS: LACTULOSE 20 GM/30 ML SYRUP UDC PO ONE (18:40)
[2024-12-11] MEDS: BISACODYL 5 MG TAB PO ONE (18:40)
[2024-12-11] MEDS: SENNOSIDES/DOCUSATE SODIUM 8.6 MG/50MG TAB PO ONE (18:40)
[2024-12-11 20:10] VITALS: BP 146/82; TEMP 97.3; O2SAT 94
[2024-12-11] MEDS: MIRALAX *UNIT DOSE* 17 GM PACKET PO SCH (20:24)
[2024-12-11] MEDS: SENNOSIDES/DOCUSATE SODIUM 8.6 MG/50MG TAB PO SCH (20:25)
[2024-12-12 03:46] VITALS: BP 146/84; TEMP 97.5; O2SAT 95
[2024-12-12 08:20] LABS: PLATELET COUNT, AUTOMATED 222 10^3/uL (150-450)
[2024-12-12 08:21] VITALS: BP 181/106; TEMP 97.7; O2SAT 94
[2024-12-12 08:37] LABS: ALT/SGPT 49 U/L (7.0-40); AST/SGOT 108 U/L (<34); CALCIUM LEVEL 8.9 MG/DL (8.3-10.6); CARBON DIOXIDE LEVEL 26 MMOL/L (20-31); CHLORIDE LEVEL 105 MMOL/L (98-107); CREATININE FOR GFR 0.80 MG/DL (0.70-1.30); GLOMERULAR FILTRATION RATE > 90.0 (>49); POTASSIUM SERUM 4.1 MMOL/L (3.5-5.1); SODIUM LEVEL 144 MMOL/L (136-145)
[2024-12-12] MEDS: PERCOCET 5MG/325MG TAB PO ONE (08:38)
[2024-12-12 12:00] VITALS: BP 148/76; TEMP 97.5; O2SAT 96
[2024-12-12 13:40] VITALS: BP 148/76; TEMP 97.5; O2SAT 96
[2024-12-12 16:43] VITALS: BP 163/87; TEMP 97.8; O2SAT 99
[2024-12-12 20:20] VITALS: BP 141/71; TEMP 97.7; O2SAT 91
[2024-12-13 04:00] VITALS: BP 196/81; TEMP 97.7; O2SAT 93
[2024-12-13 08:15] VITALS: BP 163/83; TEMP 97.3; O2SAT 95
[2024-12-13] MEDS: oxyCODONE 10 MG CR TAB PO SCH (08:19)
[2024-12-13] MEDS: IBUPROFEN 400 MG TAB PO ONE (08:20)
[2024-12-13 12:00] VITALS: BP 126/70; TEMP 97.5
[2024-12-13] MEDS: IBUPROFEN 400 MG TAB PO SCH (12:30)
[2024-12-13 20:41] VITALS: BP 141/75; TEMP 97.9
[2024-12-13] MEDS: amLODIPine 10 MG TAB PO SCH (20:56)
[2024-12-14 04:00] VITALS: BP 118/44; TEMP 97.9; O2SAT 95
[2024-12-14 12:00] VITALS: BP 116/68; TEMP 97.5; O2SAT 93
[2024-12-14 13:22] LABS: ANTI-SMOOTH MUSCLE ANTIBODY < 20 U (<20)
[2024-12-14 19:00] VITALS: BP 136/70; TEMP 97.3; O2SAT 95
[2024-12-15 04:00] VITALS: BP 144/82; TEMP 97.9; O2SAT 65
[2024-12-15 06:25] LABS: PLATELET COUNT, AUTOMATED 235 10^3/uL (150-450)
[2024-12-15 07:02] LABS: ALT/SGPT 65 U/L (7.0-40); AST/SGOT 114 U/L (<34); CALCIUM LEVEL 8.6 MG/DL (8.3-10.6); CARBON DIOXIDE LEVEL 28 MMOL/L (20-31); CHLORIDE LEVEL 105 MMOL/L (98-107); CREATININE FOR GFR 0.85 MG/DL (0.70-1.30); GLOMERULAR FILTRATION RATE > 90.0 (>49); POTASSIUM SERUM 4.6 MMOL/L (3.5-5.1); SODIUM LEVEL 145 MMOL/L (136-145)
[2024-12-15 12:14] VITALS: BP 152/71; TEMP 97.9; O2SAT 93
[2024-12-15 20:00] VITALS: BP 155/85; TEMP 97.7; O2SAT 95
[2024-12-16 04:00] VITALS: BP 154/74; TEMP 97.5; O2SAT 94
[2024-12-16 08:52] LABS: ANTI-MITOCHONDRIAL ANTIBODY Negative (Negative); LIVER-KIDNEY MICROSOMAL ABY <= 20.0 U (<=20.0)
[2024-12-16] MEDS ORDERED: CEPH500C PO (09:51)
[2024-12-16] MEDS ORDERED: MIRA33506 PO (09:51)
[2024-12-16] MEDS ORDERED: DOCU8.6T PO (09:51)
[2024-12-16] MEDS ORDERED: IBUP-1114 PO (09:51)
[2024-12-16] MEDS ORDERED: AMLO1TAB25 PO (09:51)
[2024-12-16] MEDS ORDERED: INSULANT SC (09:51)
[2024-12-16] MEDS ORDERED: TAMS-18 PO (09:51)
[2024-12-16 19:45] VITALS: BP 123/91; TEMP 97.8; O2SAT 97
[2024-12-16 21:28] VITALS: BP 123/91
[2024-12-17 03:56] VITALS: BP 138/92; TEMP 97.7; O2SAT 97
[2024-12-17 12:00] VITALS: BP 144/92; TEMP 97.7
== END 2024-12-17 16:50 | DRG 872 ==
LOC: M ED 11:37 → EDBD 11:37 → M ED INP 15:24 → M MS5PR 12-08 11:35
PROVIDERS: ADMIT General Practice; ATTEND Family Medicine
DX: A41.9 Sepsis, unspecified organism (principal); E66.2 Morbid (severe) obesity with alveolar hypoventilation; L03.116 Cellulitis of left lower limb; S42.432A Displaced fracture (avulsion) of lateral epicondyle of left humerus, initial encounter for closed fracture; S52.515A Nondisplaced fracture of left radial styloid process, initial encounter for closed fracture; F31.81 Bipolar II disorder; R45.851 Suicidal ideations; Z68.42 Body mass index [BMI] 45.0-49.9, adult; F43.10 Post-traumatic stress disorder, unspecified; I10 Essential (primary) hypertension; I87.2 Venous insufficiency (chronic) (peripheral); E11.42 Type 2 diabetes mellitus with diabetic polyneuropathy; E86.0 Dehydration; W18.30XA Fall on same level, unspecified, initial encounter; Y92.9 Unspecified place or not applicable; Y93.9 Activity, unspecified; Y99.8 Other external cause status; F41.9 Anxiety disorder, unspecified; R74.01 Elevation of levels of liver transaminase levels; I95.1 Orthostatic hypotension; R31.9 Hematuria, unspecified; R30.0 Dysuria; Z62.811 Personal history of psychological abuse in childhood; Z91.148 Patient's other noncompliance with medication regimen for other reason; Z79.84 Long term (current) use of oral hypoglycemic drugs

== ENCOUNTER 2024-12-16 14:30 | Inpatient (IN) | payer OTHER, MEDICAID ==
[~2024-12-16] VITALS: Ht 177.8 cm; Wt 157.0 kg
[~2024-12-16 14:30] MED LIST changes: +DOCU8.6T PO; +IBUP-1114 PO; +INSULANT SC; +MIRA33506 PO; +TAMS-18 PO
[2024-12-17] MEDS ORDERED: MAALOX 30 ML SUSP *UDC PO PRN (15:55)
[2024-12-17] MEDS ORDERED: GLUCOSE 4 GM CHEW PO PRN (15:55)
[2024-12-17] MEDS ORDERED: GLUCAGON INJ 1 MG VIAL SC PRN (15:55)
[2024-12-17] MEDS ORDERED: MOM 30 ML SUSPENSION UDC PO PRN (15:55)
[2024-12-17] MEDS ORDERED: HALOPERIDOL 5 MG TAB PO PRN (15:55)
[2024-12-17] MEDS ORDERED: OLANZapine 5 MG TAB PO PRN (15:55)
[2024-12-17 17:07] VITALS: BP 153/87; TEMP 97; O2SAT 95
[2024-12-17] MEDS: INSULIN LISPRO (NovoLOG) PER UNIT SC SCH ×2 (18:29→23:55)
[2024-12-17] MEDS: LanTUS (INSULIN GLARGINE INJ) 1 UNITS/0.01 ML SC SCH (21:00)
[2024-12-17] MEDS: IBUPROFEN 400 MG TAB PO PRN (22:48)
[2024-12-18 00:37] LABS: BASO # 0.0 10^3/uL (0.0-0.2); BASO % 0.5 % (0.0-1.0); EOS # 0.3 10^3/uL (0.0-0.5); EOS % 3.2 % (0.0-3.0); LYMPH # 1.5 10^3/uL (1.5-5.0); LYMPH % 19.2 % (24.0-44.0); MONO # 0.5 10^3/uL (0.0-0.8); MONO % 6.4 % (2.0-8.0); NEUTROPHILS # 5.4 10^3/uL (1.5-8.5); NEUTROPHILS % 70.3 % (36.0-66.0); PLATELET COUNT, AUTOMATED 240 10^3/uL (150-450)
[2024-12-18 01:02] LABS: CALCIUM LEVEL 8.1 MG/DL (8.3-10.6); CARBON DIOXIDE LEVEL 26 MMOL/L (20-31); CHLORIDE LEVEL 105 MMOL/L (98-107); CREATININE FOR GFR 0.74 MG/DL (0.70-1.30); GLOMERULAR FILTRATION RATE > 90.0 (>49); POTASSIUM SERUM 4.4 MMOL/L (3.5-5.1); SODIUM LEVEL 143 MMOL/L (136-145)
[2024-12-18 06:44] VITALS: BP 109/61; TEMP 97.5; O2SAT 95
[2024-12-18] MEDS ORDERED: INSULIN LISPRO (NovoLOG) PER UNIT SC SCH ×2 (07:30)
[2024-12-18] MEDS: INSULIN LISPRO (NovoLOG) PER UNIT SC SCH ×2 (07:30→21:00)
[2024-12-18] MEDS ORDERED: NICOTINE 14 MG/24 HR TRANSDERMAL TD SCH (09:00)
[2024-12-18] MEDS ORDERED: LanTUS (INSULIN GLARGINE INJ) 1 UNITS/0.01 ML SC SCH (09:00)
[2024-12-18 15:27] VITALS: BP 135/75; TEMP 97.8; O2SAT 96
[2024-12-18] MEDS: buPROPion **XL** 150 MG TABLET PO SCH (16:47)
[2024-12-19 06:48] VITALS: BP 132/80; TEMP 97.6; O2SAT 99
[2024-12-19 16:13] VITALS: BP 152/77; TEMP 97.4; O2SAT 95
[2024-12-19] MEDS: LanTUS (INSULIN GLARGINE INJ) 1 UNITS/0.01 ML SC SCH (20:23)
[2024-12-20 06:50] VITALS: BP 179/83; TEMP 98.5; O2SAT 95
[2024-12-20] MEDS: PERCOCET 5MG/325MG TAB PO ONE (12:00)
[2024-12-20 13:17] LABS: HEPATITIS B CORE ANTIBODY IGG REACTIVE (NON-REACTIVE)
[2024-12-20 14:02] LABS: HEPATITIS A IgG TOTAL REACTIVE (NON-REACTIVE)
[2024-12-20 15:39] VITALS: BP 168/85; TEMP 97.4; O2SAT 97
[2024-12-20] MEDS: ACETAMINOPHEN 325 MG TAB PO PRN (20:42)
[2024-12-21 06:48] VITALS: BP 134/70; TEMP 97.4; O2SAT 97
[2024-12-21 16:12] VITALS: BP 166/90; TEMP 97.6; O2SAT 96
[2024-12-21] MEDS: PERCOCET 5MG/325MG TAB PO PRN (21:03)
[2024-12-21] MEDS: LORazepam 1 MG TAB PO PRN (21:05)
[2024-12-21] MEDS: traZODone 50 MG TAB PO PRN (21:05)
[2024-12-22 14:52] VITALS: BP 133/71; TEMP 97.4; O2SAT 96
[2024-12-22] MEDS: amLODIPine 5 MG TAB PO SCH (16:45)
[2024-12-22] MEDS ORDERED: HOME MED LIST COMPLETE! XX SCH (16:45)
[2024-12-22] MEDS: NYSTATIN CREAM 15 GM TOP SCH (21:43)
[2024-12-23 06:41] VITALS: BP 154/78; TEMP 98; O2SAT 94
[2024-12-23 18:38] VITALS: BP 142/80; TEMP 98.1
[2024-12-24 06:37] VITALS: BP 150/77; TEMP 97.5; O2SAT 98
[2024-12-24] MEDS: buPROPion **XL** 150 MG TABLET PO SCH (09:00)
[2024-12-24 15:36] VITALS: BP 156/86; TEMP 97.2; O2SAT 91
[2024-12-25 06:19] VITALS: BP 160/88; TEMP 97.7; O2SAT 98
[2024-12-25 14:43] VITALS: BP 158/82; TEMP 98; O2SAT 95
[2024-12-26 06:45] VITALS: BP 168/81; TEMP 97.4; O2SAT 94
[2024-12-26 10:54] VITALS: BP 174/87; TEMP 97.4; O2SAT 94
[2024-12-26 15:44] VITALS: BP 144/84; TEMP 97.2; O2SAT 95
[2024-12-27 06:53] VITALS: BP 137/83; TEMP 97.3; O2SAT 93
[2024-12-27 08:07] VITALS: BP 137/83; TEMP 97.3; O2SAT 93
[2024-12-27 15:13] VITALS: BP 144/77; TEMP 97.7; O2SAT 94
[2024-12-28 06:39] VITALS: BP 140/80; TEMP 97.2; O2SAT 98
[2024-12-28 15:41] VITALS: BP 144/72; TEMP 97.4; O2SAT 96
[2024-12-28 16:18] LABS: PLATELET COUNT, AUTOMATED 245 10^3/uL (150-450)
[2024-12-28 16:25] LABS: C REACTIVE PROTEIN QUANTITATIV 0.68 MG/DL (<1.0); CALCIUM LEVEL 9.0 MG/DL (8.3-10.6); CARBON DIOXIDE LEVEL 27 MMOL/L (20-31); CHLORIDE LEVEL 106 MMOL/L (98-107); CREATININE FOR GFR 0.78 MG/DL (0.70-1.30); GLOMERULAR FILTRATION RATE > 90.0 (>49); POTASSIUM SERUM 4.0 MMOL/L (3.5-5.1); SODIUM LEVEL 143 MMOL/L (136-145)
[2024-12-29 06:42] VITALS: BP 160/83; TEMP 97.5; O2SAT 96
[2024-12-29 10:45] VITALS: BP 150/84
[2024-12-29 15:33] VITALS: BP 127/62; TEMP 97.2; O2SAT 95
[2024-12-30] MEDS: AUGMENTIN 875 MG TAB PO SCH (02:39)
[2024-12-30] MEDS: DOXYCYCLINE HYCLATE 100 MG TABLET PO SCH (02:39)
[2024-12-30 06:39] VITALS: BP 156/84; TEMP 97.2; O2SAT 95
[2024-12-30 16:37] VITALS: BP 138/78; TEMP 97.5; O2SAT 94
[2024-12-31 06:44] VITALS: BP 154/85; TEMP 97.2; O2SAT 95
[2024-12-31 16:25] VITALS: BP 144/80; TEMP 97.9; O2SAT 95
[2025-01-01 06:45] VITALS: BP 159/81; TEMP 97.4; O2SAT 99
[2025-01-01] MEDS: IBUPROFEN 600 MG TAB PO PRN (11:58)
[2025-01-01 15:20] VITALS: BP 146/80; TEMP 97.9; O2SAT 96
[2025-01-02 06:42] VITALS: BP 101/51; TEMP 97.2; O2SAT 96
[2025-01-02] MEDS ORDERED: DOXY100T PO (08:45)
[2025-01-02] MEDS ORDERED: IBUP-1022 PO (08:45)
[2025-01-02] MEDS ORDERED: NYST0.1C TOP (08:45)
[2025-01-02] MEDS ORDERED: AMOX875T2 PO (08:45)
[2025-01-02] MEDS ORDERED: ABIL10TA9 PO (08:45)
[2025-01-02] MEDS ORDERED: AMLO1TAB24 PO (08:45)
[2025-01-02] MEDS ORDERED: ACET32TAB PO (08:45)
[2025-01-02 09:54] VITALS: BP 149/70
[2025-01-02] MEDS ORDERED: METF500T13 PO (12:52)
[2025-01-02] MEDS ORDERED: METF10004 PO (12:52)
== END 2025-01-02 15:02 | disposition home or self-care (01) | DRG 885 ==
LOC: M PSY 12-17 16:53
PROVIDERS: ADMIT Internal Medicine; ATTEND Psychiatry & Neurology Psychiatry
DX: F31.9 Bipolar disorder, unspecified (principal); R45.851 Suicidal ideations; L97.928 Non-pressure chronic ulcer of unspecified part of left lower leg with other specified severity; S42.352P Displaced comminuted fracture of shaft of humerus, left arm, subsequent encounter for fracture with malunion; Z68.42 Body mass index [BMI] 45.0-49.9, adult; F41.1 Generalized anxiety disorder; I10 Essential (primary) hypertension; I87.2 Venous insufficiency (chronic) (peripheral); E11.42 Type 2 diabetes mellitus with diabetic polyneuropathy; E66.01 Morbid (severe) obesity due to excess calories; Z91.51 Personal history of suicidal behavior; Z62.811 Personal history of psychological abuse in childhood; Z62.810 Personal history of physical and sexual abuse in childhood; Z79.4 Long term (current) use of insulin; Z79.899 Other long term (current) drug therapy; Z91.148 Patient's other noncompliance with medication regimen for other reason; S52.502D Unspecified fracture of the lower end of left radius, subsequent encounter for closed fracture with routine healing

== ENCOUNTER 2025-01-16 12:21 | Inpatient (IN) | payer OTHER, MEDICAID ==
[~2025-01-16] VITALS: Ht 177.8 cm; Wt 49.2 kg
[~2025-01-16 12:21] MED LIST changes: +ABIL10TA9 PO; +ACET32TAB PO; +AMLO1TAB24 PO; +AMOX875T2 PO; +DOXY100T PO; +IBUP600T42 PO; +METF10004 PO; +METF500T13 PO; +NYST0.1C TOP
[2025-01-16] MEDS ORDERED: HOME MED LIST COMPLETE! XX SCH (15:40)
[2025-01-16] MEDS: CEPHALEXIN 500 MG CAP PO ONE (15:49)
[2025-01-16 15:55] LABS: BASO # 0.0 10^3/uL (0.0-0.2); BASO % 0.3 % (0.0-1.0); EOS # 0.2 10^3/uL (0.0-0.5); EOS % 3.6 % (0.0-3.0); LYMPH # 1.8 10^3/uL (1.5-5.0); LYMPH % 28.5 % (24.0-44.0); MONO # 0.6 10^3/uL (0.0-0.8); MONO % 8.5 % (2.0-8.0); NEUTROPHILS # 3.8 10^3/uL (1.5-8.5); NEUTROPHILS % 58.9 % (36.0-66.0); PLATELET COUNT, AUTOMATED 215 10^3/uL (150-450)
[2025-01-16 16:00] LABS: ETHYL ALCOHOL (ETHANOL) < 0.003 % (0.000-0.010)
[2025-01-16 16:02] LABS: SALICYLATE LEVEL < 3.0 MG/DL (<30)
[2025-01-16 16:31] LABS: BARBITURATES URINE NEGATIVE (NEGATIVE); BENZODIAZEPINES URINE NEGATIVE (NEGATIVE); COCAINE METABOLITE URINE NEGATIVE (NEGATIVE); METHADONE URINE NEGATIVE (NEGATIVE); OPIATES URINE NEGATIVE (NEGATIVE); PHENCYCLIDINE URINE NEGATIVE (NEGATIVE)
[2025-01-16 16:34] LABS: AMPHETAMINES LEVEL URINE POSITIVE (NEGATIVE); CANNABINOIDS URINE POSITIVE (NEGATIVE)
[2025-01-16 16:34] LABS: ALT/SGPT 46 U/L (7.0-40); AST/SGOT 49 U/L (<34); CALCIUM LEVEL 9.8 MG/DL (8.3-10.6); CARBON DIOXIDE LEVEL 25 MMOL/L (20-31); CHLORIDE LEVEL 108 MMOL/L (98-107); CREATININE FOR GFR 0.69 MG/DL (0.70-1.30); GLOMERULAR FILTRATION RATE > 90.0 (>49); POTASSIUM SERUM 3.9 MMOL/L (3.5-5.1); SODIUM LEVEL 146 MMOL/L (136-145)
[2025-01-16] MEDS ORDERED: ISOVUE-370 76% 100 ML VIAL As Ordered ONE (17:58)
[2025-01-16] MEDS ORDERED: ACETAMINOPHEN 325 MG TAB PO PRN (20:15)
[2025-01-16] MEDS ORDERED: IBUPROFEN 400 MG TAB PO PRN (20:15)
[2025-01-16] MEDS ORDERED: MOM 30 ML SUSPENSION UDC PO PRN (20:15)
[2025-01-16] MEDS ORDERED: traZODone 50 MG TAB PO PRN (20:15)
[2025-01-16] MEDS ORDERED: MAALOX 30 ML SUSP *UDC PO PRN (20:15)
[2025-01-16] MEDS ORDERED: TAMSULOSIN 0.4 MG CAP PO SCH (21:00)
[2025-01-16] MEDS: CEPHALEXIN 500 MG CAP PO SCH (21:41)
[2025-01-16] MEDS: TAMSULOSIN 0.4 MG CAP PO SCH (21:41)
[2025-01-17] MEDS ORDERED: metFORMIN 500 MG TAB PO SCH (08:00)
[2025-01-17] MEDS: buPROPion **XL** 150 MG TABLET PO SCH (08:19)
[2025-01-17] MEDS: amLODIPine 5 MG TAB PO SCH (08:19)
[2025-01-17] MEDS ORDERED: buPROPion **XL** 150 MG TABLET PO SCH (09:00)
[2025-01-17] MEDS ORDERED: MOM 30 ML SUSPENSION UDC PO PRN (10:55)
[2025-01-17] MEDS ORDERED: LORazepam 1 MG TAB PO PRN (10:55)
[2025-01-17] MEDS ORDERED: IBUPROFEN 400 MG TAB PO PRN (10:55)
[2025-01-17] MEDS ORDERED: MAALOX 30 ML SUSP *UDC PO PRN (10:55)
[2025-01-17] MEDS ORDERED: HALOPERIDOL 5 MG TAB PO PRN (10:55)
[2025-01-17] MEDS ORDERED: OLANZapine 5 MG TAB PO PRN (10:55)
[2025-01-17] MEDS ORDERED: traZODone 50 MG TAB PO PRN (10:55)
[2025-01-17 11:23] LABS: AMORPHOUS SEDIMENT MODERATE (NEGATIVE); APPEARANCE, URINE TURBID (CLEAR); BACTERIA, URINE AUTO 1+ (NEGATIVE); BILIRUBIN, URINE AUTO NEGATIVE (NEGATIVE); BLOOD, URINE BLOOD NEGATIVE (NEGATIVE); GLUCOSE, URINE (UA) AUTO NEGATIVE (NEGATIVE); KETONE, URINE AUTO NEGATIVE (NEGATIVE); LEUKOCYTE ESTERASE, URINE AUTO 1+ (NEGATIVE); MUCUS, URINE LARGE (NEGATIVE); NITRITE, URINE AUTO NEGATIVE (NEGATIVE); PROTEIN, URINE AUTO NEGATIVE (NEGATIVE); RBC, URINE AUTO 0 /HPF (0-3); SPECIFIC GRAVITY URINE AUTO 1.024 (1.002-1.035); SQUAMOUS EPITHELIAL CELL UR AU 0 /HPF (0-6); UROBILINOGEN, URINE AUTO 0.2 mg/dL (0.0-2.0); WBC, URINE AUTO 0 /HPF (0-3)
[2025-01-17] MEDS ORDERED: GLUCOSE 4 GM CHEW PO PRN (13:00)
[2025-01-17] MEDS ORDERED: GLUCAGON INJ 1 MG VIAL SC PRN (13:00)
[2025-01-17] MEDS: CEPHALEXIN 500 MG CAP PO SCH (16:00)
[2025-01-17] MEDS: INSULIN LISPRO (NovoLOG) PER UNIT SC SCH (17:30)
[2025-01-17 21:30] VITALS: BP 162/91; TEMP 98.2; O2SAT 97
[2025-01-17] MEDS: TAMSULOSIN 0.4 MG CAP PO SCH (21:31)
[2025-01-17] MEDS: metFORMIN 500 MG TAB PO SCH (21:32)
[2025-01-18 04:21] VITALS: BP 134/67; TEMP 97.8; O2SAT 92
[2025-01-18] MEDS: NICOTINE 14 MG/24 HR TRANSDERMAL TD SCH (09:00)
[2025-01-18] MEDS ORDERED: amLODIPine 5 MG TAB PO SCH (09:00)
[2025-01-18] MEDS: buPROPion **XL** 150 MG TABLET PO SCH (09:39)
[2025-01-18] MEDS: INSULIN GLARGINE-YFGN 1 UNITS/0.01 ML SC SCH (09:39)
[2025-01-18] MEDS: amLODIPine 5 MG TAB PO SCH (09:40)
[2025-01-18 12:00] VITALS: BP 129/98; TEMP 97.9; O2SAT 94
[2025-01-18 19:44] VITALS: BP 132/69; TEMP 98.4; O2SAT 95
[2025-01-19 06:14] VITALS: BP 147/73; TEMP 98.7; O2SAT 95
[2025-01-19 09:11] LABS: PLATELET COUNT, AUTOMATED 204 10^3/uL (150-450)
[2025-01-19] MEDS: buPROPion **XL** 150 MG TABLET PO SCH (09:37)
[2025-01-19 09:44] LABS: ALT/SGPT 43 U/L (7.0-40); AST/SGOT 43 U/L (<34); CALCIUM LEVEL 9.2 MG/DL (8.3-10.6); CARBON DIOXIDE LEVEL 23 MMOL/L (20-31); CHLORIDE LEVEL 105 MMOL/L (98-107); CREATININE FOR GFR 0.69 MG/DL (0.70-1.30); GLOMERULAR FILTRATION RATE > 90.0 (>49); POTASSIUM SERUM 4.0 MMOL/L (3.5-5.1); SODIUM LEVEL 141 MMOL/L (136-145)
[2025-01-19 12:00] VITALS: BP 174/81; TEMP 97.9; O2SAT 92
[2025-01-19] MEDS: ACETAMINOPHEN 325 MG TAB PO PRN (20:14)
[2025-01-19 22:00] VITALS: BP 138/88; TEMP 97.9; O2SAT 94
[2025-01-20 05:43] VITALS: BP 141/79; TEMP 97.2; O2SAT 92
[2025-01-20 12:00] VITALS: BP 156/78; TEMP 97.7; O2SAT 94
[2025-01-20 19:49] VITALS: BP 126/64; TEMP 98.2; O2SAT 95
[2025-01-21 04:34] VITALS: BP 151/73; TEMP 97.8; O2SAT 97
[2025-01-21 08:09] VITALS: BP 141/83
[2025-01-21 08:14] VITALS: BP 141/83; TEMP 97.3; O2SAT 91
[2025-01-21 11:42] VITALS: BP 130/65; TEMP 97.5; O2SAT 95
[2025-01-21] MEDS ORDERED: ABIL10TA9 PO (13:57)
[2025-01-21] MEDS ORDERED: BUPR150T12 PO (13:57)
== END 2025-01-21 16:28 | disposition home or self-care (01) | DRG 885 ==
LOC: M ED 12:21 → M ED INP 20:11 → M MSPAV 01-17 20:53
PROVIDERS: ADMIT Psychiatry & Neurology Neurology; ATTEND Student in an Organized Health Care Education/Training Program
DX: F31.81 Bipolar II disorder (principal); R45.851 Suicidal ideations; S42.292A Other displaced fracture of upper end of left humerus, initial encounter for closed fracture; F43.10 Post-traumatic stress disorder, unspecified; I10 Essential (primary) hypertension; I87.2 Venous insufficiency (chronic) (peripheral); E11.42 Type 2 diabetes mellitus with diabetic polyneuropathy; F15.10 Other stimulant abuse, uncomplicated; F41.9 Anxiety disorder, unspecified; R19.7 Diarrhea, unspecified; Z79.84 Long term (current) use of oral hypoglycemic drugs; Z91.148 Patient's other noncompliance with medication regimen for other reason; Z79.899 Other long term (current) drug therapy; Z91.51 Personal history of suicidal behavior; W19.XXXA Unspecified fall, initial encounter; Y92.9 Unspecified place or not applicable; Y93.9 Activity, unspecified; Y99.8 Other external cause status

== ENCOUNTER → 2025-01-21 | Outpatient (CLI) | payer OTHER, MEDICAID | LOC: M SOG 07:04 | PROVIDERS: ATTEND Physician Assistant | DX: S42.292A Other displaced fracture of upper end of left humerus, initial encounter for closed fracture (principal); S52.592A Other fractures of lower end of left radius, initial encounter for closed fracture ==

== ENCOUNTER 2025-04-28 08:56 | Emergency (ER) | payer OTHER, MEDICAID ==
[~2025-04-28] VITALS: Ht 177.8 cm; Wt 158.7 kg
[~2025-04-28 08:56] MED LIST changes: -DOCU8.6T PO; +SENN-208 PO
[2025-04-28 09:46] LABS: PLATELET COUNT, AUTOMATED 211 10^3/uL (150-450)
[2025-04-28 10:05] LABS: CALCIUM LEVEL 8.2 MG/DL (8.3-10.6); CARBON DIOXIDE LEVEL 22 MMOL/L (20-31); CHLORIDE LEVEL 107 MMOL/L (98-107); CREATININE FOR GFR 0.78 MG/DL (0.70-1.30); GLOMERULAR FILTRATION RATE > 90.0 (>49); POTASSIUM SERUM 3.7 MMOL/L (3.5-5.1); SODIUM LEVEL 141 MMOL/L (136-145)
[2025-04-28] MEDS: APIXABAN 5 MG TAB PO ONE ×2 (12:12→12:13)
[2025-04-28] MEDS ORDERED: ELIQ5TAB PO (13:21)
[2025-04-28 13:30] VITALS: BP 183/91; TEMP 96.3; O2SAT 96
== END 2025-04-28 13:57 | disposition home or self-care (01) ==
LOC: M ED 08:56
DX: I82.622 Acute embolism and thrombosis of deep veins of left upper extremity (principal); I87.2 Venous insufficiency (chronic) (peripheral); S42.202D Unspecified fracture of upper end of left humerus, subsequent encounter for fracture with routine healing; I10 Essential (primary) hypertension; E11.9 Type 2 diabetes mellitus without complications; E78.5 Hyperlipidemia, unspecified; G47.33 Obstructive sleep apnea (adult) (pediatric); F31.9 Bipolar disorder, unspecified; Z79.01 Long term (current) use of anticoagulants; Z79.84 Long term (current) use of oral hypoglycemic drugs; Z79.899 Other long term (current) drug therapy